=== PATIENT | male | born 1960 | race Caucasian/White ===

== ENCOUNTER → 2017-01-30 | Outpatient (CLI) | payer BC | END | disposition home or self-care (01) | LOC: RAD 12:35 | PROVIDERS: ATTEND Nurse Practitioner Family | DX: M50.31 Other cervical disc degeneration, high cervical region (principal); M50.322 Other cervical disc degeneration at C5-C6 level; M50.21 Other cervical disc displacement, high cervical region; M48.02 Spinal stenosis, cervical region | CPT/HCPCS: 72141 ==

== ENCOUNTER 2018-01-20 12:26 | Day surgery (SDC) | payer BC ==
[~2018-01-20] VITALS: Ht 180.3 cm; Wt 97.5 kg
[2018-01-20] MEDS ORDERED: LACTATED RINGERS 1,000 ML IV SCH (13:09)
[2018-01-20 13:11] VITALS: BP 132/86
[2018-01-20] MEDS ORDERED: LISI-167 PO (13:11)
[2018-01-20] MEDS ORDERED: ATOR-2 PO (13:11)
[2018-01-20] MEDS ORDERED: BACITRACIN 50,000 UNIT ONE (13:35)
[2018-01-20] MEDS ORDERED: BUPIVACAINE/PF 0.5% ONE ×2 (13:35→13:36)
[2018-01-20] MEDS ORDERED: FENTANYL PF 100 MCG/2ML ONE (13:44)
[2018-01-20 13:50] LABS: ALANINE AMINOTRANSFERASE 41 U/L (12-78); ALBUMIN 4.2 g/dL (3.4-5.0); ANION GAP 10 mmol/L (5-15); CALCIUM 8.8 mg/dL (8.5-10.1); CHLORIDE 108 mmol/L (98-107); CREATININE 1.04 mg/dL (0.7-1.3)
[2018-01-20 13:52] LABS: ALKALINE PHOSPHATASE 63 U/L (45-117); BILIRUBIN,TOTAL 0.6 mg/dL (0.2-1.0); TOTAL PROTEIN 7.7 g/dL (6.4-8.2)
[2018-01-20] MEDS ORDERED: CEFAZOLIN 1,000 MG ONE ×3 (13:55→14:10)
[2018-01-20] MEDS ORDERED: PROPOFOL 10 MG/ML, 20ML ONE ×2 (13:55→14:10)
[2018-01-20] MEDS ORDERED: DEXAMETHASONE 4 MG/ML, 1ML ONE ×2 (13:55→14:10)
[2018-01-20] MEDS ORDERED: KETOROLAC 30 MG/1 ML ONE ×2 (13:55→14:11)
[2018-01-20] MEDS ORDERED: ONDANSETRON 2MG/ML, 2ML ONE ×2 (13:55→14:10)
[2018-01-20] MEDS ORDERED: MIDAZOLAM 1 MG/ML, 2ML ONE (14:10)
[2018-01-20] MEDS ORDERED: hydrALAzine 20 MG/ML, 1ML IV PRN (14:30)
[2018-01-20] MEDS ORDERED: METOPROLOL 1 MG/ML, 5ML IV PRN (14:30)
[2018-01-20] MEDS ORDERED: ACETAMINOPHEN 325 MG TABLET PO PRN (14:30)
[2018-01-20] MEDS ORDERED: PROMETHAZINE 25 MG/ML, 1ML IV PRN (14:30)
[2018-01-20] MEDS ORDERED: ONDANSETRON 2MG/ML, 2ML IVPush PRN (14:30)
[2018-01-20] MEDS ORDERED: EPHEDRINE 50 MG/ML, 1ML IVPush PRN (14:30)
[2018-01-20] MEDS ORDERED: OXYcodone 5 MG/5 ML ORAL.SOL UDC PO PRN (14:30)
[2018-01-20] MEDS ORDERED: FENTANYL PF 100 MCG/2ML IV PRN (14:30)
[2018-01-20] MEDS ORDERED: MEPERIDINE/PF 25MG/0.5ML IVPush PRN (14:30)
[2018-01-20] MEDS ORDERED: LABETALOL 5MG/ML, 20ML IV PRN (14:30)
[2018-01-20] MEDS ORDERED: ALBUTEROL SULFATE 2.5 MG/3 ML NPPB PRN (14:30)
== END 2018-01-20 16:30 | disposition home or self-care (01) ==
LOC: OUT 12:26
PROVIDERS: ATTEND Orthopaedic Surgery
DX: G56.02 Carpal tunnel syndrome, left upper limb (principal); I10 Essential (primary) hypertension; Z88.6 Allergy status to analgesic agent
CPT/HCPCS: 29848; 36415; 80053; J0690; J1100; J1885; J2250; J2405; J2704; J3010; J3490; J7120

== ENCOUNTER 2018-02-03 12:43 | Day surgery (SDC) | payer BC ==
[~2018-02-03] VITALS: Ht 180.3 cm; Wt 127.9 kg
[~2018-02-03 12:43] MED LIST: ATOR-2 PO; BUPIVACAINE/PF 0.5% ONE; EPINEPHRINE 1 MG/ML, 1ML ONE; LISI-167 PO
[2018-02-03] MEDS ORDERED: LACTATED RINGERS 1,000 ML IV SCH (13:06)
[2018-02-03 13:07] VITALS: BP 128/91
[2018-02-03] MEDS ORDERED: MIDAZOLAM 1 MG/ML, 2ML ONE (14:13)
[2018-02-03] MEDS ORDERED: FENTANYL PF 100 MCG/2ML ONE (14:14)
[2018-02-03] MEDS ORDERED: hydrALAzine 20 MG/ML, 1ML IV PRN (15:30)
[2018-02-03] MEDS ORDERED: PROMETHAZINE 25 MG/ML, 1ML IV PRN (15:30)
[2018-02-03] MEDS ORDERED: HYDROmorphone 1 MG/ML, 1ML IV PRN (15:30)
[2018-02-03] MEDS ORDERED: PROMETHAZINE 12.5 MG SUPP PR PRN (15:30)
[2018-02-03] MEDS ORDERED: LABETALOL 5MG/ML, 20ML IV PRN (15:30)
[2018-02-03] MEDS ORDERED: OXYcodone 5 MG/5 ML ORAL.SOL UDC PO PRN (15:30)
[2018-02-03] MEDS ORDERED: ACETAMINOPHEN 325 MG TABLET PO PRN (15:30)
[2018-02-03] MEDS ORDERED: FENTANYL PF 100 MCG/2ML IV PRN (15:30)
[2018-02-03] MEDS ORDERED: ALBUTEROL SULFATE 2.5 MG/3 ML NPPB PRN (15:30)
[2018-02-03] MEDS ORDERED: DEXAMETHASONE 4 MG/ML, 1ML ONE (16:26)
[2018-02-03] MEDS ORDERED: CEFAZOLIN 1,000 MG ONE (16:26)
[2018-02-03] MEDS ORDERED: PROPOFOL 10 MG/ML, 20ML ONE (16:26)
[2018-02-03] MEDS ORDERED: ONDANSETRON 2MG/ML, 2ML ONE (16:26)
== END 2018-02-03 16:25 ==
LOC: OUT 12:43
PROVIDERS: ATTEND Orthopaedic Surgery
DX: G56.01 Carpal tunnel syndrome, right upper limb (principal); Z88.6 Allergy status to analgesic agent; I10 Essential (primary) hypertension
CPT/HCPCS: 29848; J0171; J0690; J1100; J2250; J2405; J2704; J3010; J3490; J7120